=== PATIENT | male | born 1985 | race African-American/Black ===

== ENCOUNTER 2021-01-10 07:45 | Emergency (ER) | payer MEDICAID ==
[~2021-01-10] VITALS: Ht 167.6 cm; Wt 73.0 kg
[2021-01-10 08:41] LABS: CLARITY URINE CLEAR (CLEAR); COLOR URINE YELLOW (YELLOW); KETONES URINE NEGATIVE (NEGATIVE); LEUKOCYTE ESTERASE URINE NEGATIVE (NEGATIVE); NITRITE URINE NEGATIVE (NEGATIVE); OCCULT BLOOD URINE NEGATIVE (NEGATIVE); PROTEIN URINE NEGATIVE (NEGATIVE); SPECIFIC GRAVITY URINE 1.021 (1.005-1.030)
[2021-01-10] MEDS ORDERED: NITR-87 MT (09:16)
[2021-01-10 09:52] VITALS: BP 141/107
== END 2021-01-10 09:52 | disposition home or self-care (01) ==
LOC: ER 08:17
DX: R30.0 Dysuria (principal)
CPT/HCPCS: 81003; 99283

== ENCOUNTER 2021-05-22 09:25 | Emergency (ER) | payer MEDICAID ==
[~2021-05-22] VITALS: Ht 167.6 cm; Wt 62.0 kg
[~2021-05-22 09:25] MED LIST: NITR-87 MT
[2021-05-22 09:29] VITALS: BP 150/92
== END 2021-05-22 12:06 | disposition home or self-care (01) ==
LOC: ER 09:25
DX: S82.831A Other fracture of upper and lower end of right fibula, initial encounter for closed fracture (principal); X50.1XXA Overexertion from prolonged static or awkward postures, initial encounter; Y93.89 Activity, other specified; Y92.018 Other place in single-family (private) house as the place of occurrence of the external cause
CPT/HCPCS: 73610; 73630; 99284

== ENCOUNTER 2022-05-02 01:15 | Inpatient (IN) | payer MEDICAID ==
[~2022-05-02] VITALS: Ht 172.7 cm; Wt 75.9 kg
[2022-05-02] MEDS ORDERED: MORPHINE SULFATE 4 MG/ML CPJ (NOT FOR IM USE) IV STA (02:20)
[2022-05-02] MEDS ORDERED: ONDANSETRON HCL 4MG/2ML INJ IV STA (02:20)
[2022-05-02] MEDS ORDERED: MIDAZOLAM HCL 2 MG/2 ML VIAL IV ONE (02:30)
[2022-05-02] MEDS ORDERED: LEVETIRACETAM 1000MG PREMIX 100 ML IV ONE (02:30)
[2022-05-02] MEDS ORDERED: MAGNESIUM 2 G PREMIX 50 ML IV ONE (02:30)
[2022-05-02] MEDS ORDERED: FOLIC ACID 1 MG, THIAMINE HCL 100 MG, MVI, ADULT NO.1 10 ML in DEXTROSE 5% WATER 1,000 ML IV ONE ×4 (02:30)
[2022-05-02 02:45] LABS: HEMATOCRIT. 49.3 % (42.0-52.0); HEMOGLOBIN. 17.1 g/dL (14.0-18.0); MEAN CORPUSCULAR HEMOGLOBIN 34.1 pg (28.0-32.0); MEAN CORPUSCULAR VOLUME 98.3 fL (80.0-94.0); MEAN PLATELET VOLUME 8.2 fl (7.4-10.4); PLATELET 206 x1000/uL (130-400); RED BLOOD CELL COUNT 5.02 mill/uL (4.7-6.1); RED CELL DISTRIBUTION WIDTH 15.1 % (11.6-14.6)
[2022-05-02 02:52] LABS: CHLORIDE 99 mEq/L (98-107)
[2022-05-02 03:02] LABS: ETHANOL BLOOD < 10 mg/dL
[2022-05-02 03:03] LABS: PLATELET ESTIMATE NORMAL
[2022-05-02] MEDS ORDERED: ONDANSETRON HCL 4MG/2ML INJ IV PRN (08:30)
[2022-05-02] MEDS ORDERED: DOCUSATE SODIUM 100MG CAPSULE PO PRN (08:30)
[2022-05-02] MEDS ORDERED: ACETAMINOPHEN 325MG TABLET PO PRN (08:30)
[2022-05-02] MEDS ORDERED: CLONIDINE 0.1MG TABLET PO PRN (08:30)
[2022-05-02] MEDS ORDERED: TRAMADOL 50MG TABLET PO PRN (08:30)
[2022-05-02] MEDS ORDERED: GUAIFENESIN 200MG/10ML SUGAR FREE UDC PO PRN (08:30)
[2022-05-02] MEDS ORDERED: MAGNESIUM/ALUMINUM HYDROXIDE/SIMETHICONE 30ML UDC PO PRN (08:30)
[2022-05-02] MEDS ORDERED: NALOXONE HCL 0.4MG/ML VIAL IV PRN (08:45)
[2022-05-02] MEDS: SODIUM CHLORIDE 0.45% 1,000 ML IV SCH ×2 (08:54→21:27)
[2022-05-02 09:30] VITALS: BP 150/100
[2022-05-02] MEDS: THIAMINE HCL 100MG TABLET PO SCH (10:15)
[2022-05-02] MEDS: FOLIC ACID 1MG TABLET PO SCH (10:15)
[2022-05-02] MEDS: AMLODIPINE 10MG TABLET PO SCH (10:15)
[2022-05-02 12:00] VITALS: BP 140/83
[2022-05-02] MEDS: CHLORDIAZEPOXIDE 25MG CAPSULE PO SCH ×2 (14:29→21:27)
[2022-05-02 16:00] VITALS: BP 137/73
[2022-05-02 17:56] LABS: CREATINE KINASE 296 IU/L (39-308)
[2022-05-02 20:35] VITALS: BP 138/95
[2022-05-02] MEDS: FAMOTIDINE 20MG TABLET PO SCH (21:27)
[2022-05-03] VITALS: BP 119/78
[2022-05-03 02:19] LABS: *AMPHETAMINES SCREEN URINE NEGATIVE (NEGATIVE); *BARBITURATES SCREEN URINE NEGATIVE (NEGATIVE); *BENZODIAZEPINES SCREEN URINE PRESUMTIVE POSITIVE (NEGATIVE); *COCAINE SCREEN URINE NEGATIVE (NEGATIVE); CANNABINOID URINE SCREEN NEGATIVE (NEGATIVE); METHADONE URINE SCREEN NEGATIVE (NEGATIVE); OPIATES URINE SCREEN PRESUMTIVE POSITIVE (NEGATIVE); PHENCYCLIDINE URINE SCREEN NEGATIVE (NEGATIVE)
[2022-05-03 04:00] VITALS: BP 129/84
[2022-05-03] MEDS: CHLORDIAZEPOXIDE 25MG CAPSULE PO SCH ×2 (05:49→13:47)
[2022-05-03 06:20] LABS: BASOPHILS % 0.8 % (0.0-2.0); EOSINOPHILS % 0.4 % (0.0-5.0); HEMATOCRIT. 43.1 % (42.0-52.0); HEMOGLOBIN. 15.3 g/dL (14.0-18.0); LYMPHOCYTES % 8.4 % (20.0-50.0); MEAN CORPUSCULAR HEMOGLOBIN 34.6 pg (28.0-32.0); MEAN CORPUSCULAR VOLUME 97.3 fL (80.0-94.0); MONOCYTES % 8.5 % (2.0-8.0); NEUTROPHILS % 81.9 % (40.0-76.0); PLATELET 139 x1000/uL (130-400); RED BLOOD CELL COUNT 4.43 mill/uL (4.7-6.1); RED CELL DISTRIBUTION WIDTH 14.8 % (11.6-14.6)
[2022-05-03 06:22] LABS: CHLORIDE 97 mEq/L (98-107)
[2022-05-03 06:29] LABS: PHOSPHORUS 2.7 mg/dL (2.5-4.9)
[2022-05-03] MEDS: AMLODIPINE 10MG TABLET PO SCH (10:26)
[2022-05-03] MEDS: FAMOTIDINE 20MG TABLET PO SCH (10:26)
[2022-05-03] MEDS: FOLIC ACID 1MG TABLET PO SCH (10:26)
[2022-05-03] MEDS: THIAMINE HCL 100MG TABLET PO SCH (10:27)
[2022-05-03] MEDS ORDERED: POTASSIUM CHLORIDE 20MEQ TABLET SR PO NR (11:30)
[2022-05-03 13:06] VITALS: BP 123/79
== END 2022-05-03 14:03 | disposition home or self-care (01) | DRG 53 ==
LOC: ER 01:15 → 7WST 05:03 → ENRESERV 07:54 → 7WST 09:55
PROVIDERS: ADMIT Hospitalist; ATTEND Hospitalist
DX: R56.9 Unspecified convulsions (principal); E87.2 Acidosis; K76.0 Fatty (change of) liver, not elsewhere classified; I10 Essential (primary) hypertension; R74.01 Elevation of levels of liver transaminase levels; F10.139 Alcohol abuse with withdrawal, unspecified; Y90.0 Blood alcohol level of less than 20 mg/100 ml; M54.9 Dorsalgia, unspecified
CPT/HCPCS: 36415; 71045; 74176; 80053; 80305; 80320; 82550; 83605; 83735; 84100; 84484; 85025; 93005; 99291; J1953; J2250; J2270; J2405; J3411; J3475; J3490; J7070; G0480

== ENCOUNTER 2022-06-09 00:20 | Emergency (ER) | payer MEDICAID ==
[~2022-06-09] VITALS: Ht 167.6 cm; Wt 82.0 kg
[2022-06-09 00:25] VITALS: BP 129/90
== END 2022-06-09 02:00 | disposition left against medical advice (07) ==
LOC: ER 00:20
DX: Z53.21 Procedure and treatment not carried out due to patient leaving prior to being seen by health care provider (principal)